=== PATIENT | female | born 2000 | race Caucasian/White ===

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

== ENCOUNTER 2023-06-07 10:00 | Inpatient (IN) | payer OTHER ==
[2023-06-07] MEDS: ELECTROLYTE-148 SOLN 500 ML IV ONE (10:50)
[2023-06-07 11:14] VITALS: BMI 36.5
[2023-06-07] MEDS: ELECTROLYTE-148 SOLN 1,000 ML IV SCH (11:20)
[2023-06-07] MEDS: CITRIC ACID/SODIUM CITRATE 30 ML UNIT-DOSE CUP PO ONE (12:48)
[2023-06-07] MEDS ORDERED: FENTANYL CITRATE/PF 50 MCG/ML VIAL ONE (13:26)
[2023-06-07] MEDS ORDERED: morphine SULFATE/PF 1 MG/2 ML (2cc Syringe - QUVA) ONE (13:26)
[2023-06-07] MEDS ORDERED: OXYTOCIN 10 UNITS/ML VIAL ONE (14:09)
[2023-06-07] MEDS ORDERED: OXYTOCIN 20 UNITS in 0.9% NS 20 UNIT/1,000 ML INFUS.BAG IV ONE (15:01)
[2023-06-07] MEDS: OXYTOCIN 20 UNITS in 0.9% NS 20 UNIT/1,000 ML INFUS.BAG IV SCH (15:05)
[2023-06-07] MEDS ORDERED: METHYLERGONOVINE MALEATE 0.2 MG/1 ML AMP IM PRN (15:14)
[2023-06-07] MEDS ORDERED: IBUPROFEN 800 MG/8 ML IJ IVPB ONE (16:14)
[2023-06-07] MEDS: IBUPROFEN 800 MG/8 ML IJ IVPB PRN (16:20)
[2023-06-07] MEDS: ACETAMINOPHEN 1000 MG/100 ML BAG IVPB PRN (21:28)
[2023-06-08] MEDS ORDERED: oxyCODONE HCL 5 MG TABLET PO PRN (03:14)
[2023-06-08 07:59] LABS: BASO % 0.1 % (0-2.0); EOS % 0.1 % (0-4.5); HEMOGLOBIN 7.5 GM/dL (10.7-15.3); LYMPH % 20.8 % (8-40); MCH 22.8 pg (25.7-33.7); MCHC 31.4 g/dl (32.0-36.0); MEAN CELL VOLUME 72.8 fl (80-96); MEAN PLT VOLUME 7.9 fl (7.5-11.1); MONO % 5.2 % (3.8-10.2); NEUT % 73.8 % (42.8-82.8); PLATELET COUNT 235 10^3/uL (134-434); RDW 19.8 % (11.6-15.6); WHITE BLOOD COUNT 12.8 K/mm3 (4.0-10.0)
[2023-06-08] MEDS: FERROUS SO4 325 MG TABLET (FP) PO SCH (08:25)
[2023-06-08] MEDS: PRENATAL VITAMINS W/ FOLIC ACID TABLET (FP) PO SCH (10:02)
[2023-06-08] MEDS: IBUPROFEN 600 MG TABLET (FP) PO PRN (10:03)
[2023-06-08] MEDS: SIMETHICONE 80 MG TAB.CHEW (FP) PO PRN (10:03)
[2023-06-08] MEDS ORDERED: BISACODYL 10 MG SUPP.RECT RC PRN (15:14)
[2023-06-08] MEDS: ACETAMINOPHEN 325 MG TABLET (FP) PO PRN (16:39)
[2023-06-08] MEDS: oxyCODONE HCL 5 MG TABLET PO PRN (20:48)
[2023-06-08] MEDS: SENNOSIDES/DOCUSATE COMBO (SENNA PLUS) TABLET (UD) PO PRN (20:49)
[2023-06-09] MEDS: FERROUS SO4 325 MG TABLET (FP) PO SCH (09:59)
[2023-06-09] MEDS: CEFAZOLIN SODIUM 2 GM in DEXTROSE 5%-WATER 100 ML IVPB SCH (18:54)
[2023-06-09 19:30] LABS: BASO % 0.1 % (0-2.0); EOS % 0.2 % (0-4.5); HEMATOCRIT 24.5 % (32.4-45.2); HEMOGLOBIN 7.8 GM/dL (10.7-15.3); LYMPH % 12.1 % (8-40); MCH 23.1 pg (25.7-33.7); MCHC 31.7 g/dl (32.0-36.0); MEAN CELL VOLUME 72.7 fl (80-96); MEAN PLT VOLUME 7.5 fl (7.5-11.1); MONO % 5.5 % (3.8-10.2); NEUT % 82.1 % (42.8-82.8); PLATELET COUNT 288 10^3/uL (134-434); RBC 3.37 M/mm3 (3.60-5.2); RDW 19.8 % (11.6-15.6); WHITE BLOOD COUNT 15.3 K/mm3 (4.0-10.0)
[2023-06-10] MEDS: CEFAZOLIN SODIUM 2 GM in DEXTROSE 5%-WATER 100 ML IVPB SCH (18:21)
[2023-06-11 09:59] VITALS: BP 100/88; PULSE 106; RESP 20; TEMP 98.6
== END 2023-06-11 16:32 | disposition home or self-care (01) | DRG 540 ==
LOC: JLDR 10:00 → J3W 17:00
PROVIDERS: ADMIT Obstetrics & Gynecology; ATTEND Obstetrics & Gynecology
PROC: 10D00Z1 Extraction of Products of Conception, Low, Open Approach (ICD-10-PCS; principal; 2023-06-07)
DX: O16.4 Unspecified maternal hypertension, complicating childbirth (principal); O32.1XX0 Maternal care for breech presentation, not applicable or unspecified; O99.344 Other mental disorders complicating childbirth; O99.892 Other specified diseases and conditions complicating childbirth; Z3A.38 38 weeks gestation of pregnancy; Z37.0 Single live birth
CPT/HCPCS: 0241U-QW; 36415; 80053; 85025; 85610; 85730; 86780; 86850; 86900; 86901; 87389; 88307-TC; 94010; J0131